=== PATIENT | male | born 1975 | race Caucasian/White ===

== ENCOUNTER 2016-09-09 14:33 | Emergency (ER) | payer SELFPAY ==
[~2016-09-09] VITALS: Ht 172.7 cm; Wt 95.5 kg
[2016-09-09 16:28] VITALS: BP 130/73
== END 2016-09-09 16:29 | disposition home or self-care (01) ==
LOC: ED 14:33
DX: B34.9 Viral infection, unspecified (principal); R03.0 Elevated blood-pressure reading, without diagnosis of hypertension
CPT/HCPCS: J7613; J7644; Q0092; Q0162

== ENCOUNTER 2017-05-27 02:57 | Emergency (ER) | payer OTHER ==
[~2017-05-27] VITALS: Ht 172.7 cm; Wt 97.1 kg
[2017-05-27 03:06] VITALS: Ht 172.7 cm; Wt 97.1 kg
[2017-05-27 04:10] LABS: PLATELET COUNT 328 x10^3mcL (130-400)
[2017-05-27 04:45] LABS: CALCIUM 7.6 mg/dL (8.5-10.1); CARBON DIOXIDE 24.4 mmol/L (21-32); CHLORIDE SERUM 105 mmol/L (98-107); GFR1 > 60 mL/min; GLUCOSE SERUM 123 mg/dL (74-106); POTASSIUM SERUM 3.6 mmol/L (3.5-5.1); SODIUM SERUM 140 mmol/L (136-145)
[2017-05-27 04:47] LABS: BAND NEUTROPHIL 2 % (0-10); MONOCYTE 2 % (0-7); SEGMENTED NEUTROPHILS 92 % (37-75)
[2017-05-27 04:48] LABS: rbc morphology (normal/abnorm) ABNORMAL (NORMAL)
[2017-05-27 04:49] LABS: ALKALINE PHOSPHATASE 67 U/L (46-116); ALT/SGPT 68 U/L (16-63); AMYLASE 61 U/L (25-115); AST/SGOT 27 U/L (15-37); BILIRUBIN TOTAL 1.62 mg/dL (0.20-1.00); LIPASE 147 IU/L (73-393); PLATELET MORPHOLOGY LARGE PLATELET SEEN; TOTAL PROTEIN, SERUM 7.1 g/dL (6.4-8.2)
[2017-05-27 04:55] LABS: ALBUMIN 3.3 g/dL (3.4-5.0)
[2017-05-27 05:40] VITALS: BP 118/79
== END 2017-05-27 06:00 | disposition home or self-care (01) ==
LOC: ED 02:57
PROVIDERS: Specialist
DX: R10.9 Unspecified abdominal pain (principal); D72.829 Elevated white blood cell count, unspecified; R11.10 Vomiting, unspecified
CPT/HCPCS: 83880; J1170; J1885; J2405; J3010; J3490; J7030

== ENCOUNTER 2019-11-26 23:05 | Emergency (ER) | payer MEDICAID, SELFPAY ==
[~2019-11-26] VITALS: Ht 172.7 cm; Wt 101.2 kg
[2019-11-26 23:19] VITALS: Ht 172.7 cm; Wt 101.2 kg
[2019-11-27 03:40] VITALS: BP 115/76
== END 2019-11-27 03:40 | disposition home or self-care (01) ==
LOC: ED 23:05
DX: U07.1 COVID-19 (principal); B34.9 Viral infection, unspecified
CPT/HCPCS: 87804; U0003-CS